=== PATIENT | male | born 1990 | race Caucasian/White ===

== ENCOUNTER 2020-12-13 11:10 | Outpatient (CLI) | payer OTHER ==
[2020-12-16 15:31] LABS: HEPATITIS C ANTIBODY NON-REACTIVE (NON-REACTIVE)
[2020-12-16 17:11] LABS: HIV AG/AB 4TH GEN NON-REACTIVE (NON-REACTIVE)
[2020-12-17 12:05] LABS: HSV 2 IGG TYPE SPECIFIC AB <0.90 index
== END 2020-12-13 11:11 | disposition home or self-care (01) ==
LOC: LAB.N 11:10
PROVIDERS: ATTEND Family Medicine
DX: Z11.3 Encounter for screening for infections with a predominantly sexual mode of transmission (principal)
CPT/HCPCS: 81599; 86592; 86695; 86696; 86803; 87389; 87491; 87591; 87661

== ENCOUNTER 2021-04-26 18:29 | Emergency (ER) | payer OTHER ==
--- NOTE | 2021-04-26 19:18 | ED Physician Documentation ---
PD HPI MAJOR TRAUMA - Stated complaint Stated Complaint: L SHOULDER INJ,L SIDE PX - Chief complaint Chief Complaint: Trauma Ch/Bk - History obtained from History obtained from: Patient - Additional information Additional information: Snowboarding forward fall yesterday onto ice yesterday. C/O sharp intermittent left upper anterior CP and increase with cough. Review of Systems Constitutional: reports: Reviewed and negative Throat: reports: Reviewed and negative Cardiac: reports: Chest pain / pressure Respiratory: reports: Reviewed and negative PD PAST MEDICAL HISTORY - Past Medical History Past Medical History: No - Present Medications Home Medications: Ambulatory Orders Medication Instructions Recorded Confirmed HYDROcod/ACETAM 5/325 [[place] 5/325] 1 - 2 tab PO Q6H PRN #10 tablet 04/26/21 - Allergies Allergies/Adverse Reactions: Allergies Allergy/AdvReac Type Severity Reaction Status Date / Time Sulfa (Sulfonamide Allergy Unknown Verified 04/26/21 18:53 Antibiotics) - Social History Does the pt smoke?: Yes Smoking Status: Current every day smoker (vaping) PD ED PE NORMAL - Vitals Vital signs reviewed: Yes - General General: Alert and oriented X 3, No acute distress - HEENT HEENT: PERRL, EOMI - Neck Neck: Supple, no meningeal sign, No bony TTP - Cardiac Cardiac: Other (Mild resting tachy; TTP Left upper chest wall, no deformity) - Respiratory Respiratory: No respiratory distress, Clear bilaterally - Abdomen Abdomen: Soft, Non tender - Extremities Extremities: No edema, No calf tenderness / cord - Neuro Neuro: Alert and oriented X 3, Normal speech - Psych Psych: Normal mood, Normal affect Results - Vitals Vitals: Vital Signs - 24 hr 04/26/21 04/26/21 18:46 18:52 Temperature 37.1 C 37.1 C Heart Rate 129 H 110 H Respiratory 16 16 Rate Blood Pressure 120/70 120/70 O2 Saturation 98 98 Oxygen O2 Source Room air - EKG (time done) 1851 Rate: Rate (enter#) (114) Rhythm: Sinus tachycardia [place]: RAD Intervals: Normal [place] QRS: Normal Ischemia: Normal ST segments - Labs Labs: Laboratory Tests 04/26/21 04/26/21 20:16 20:16 WBC 7.3 RBC 4.67 L Hgb 14.2 Hct 42.0 MCV 89.9 MCH 30.4 MCHC 33.8 RDW 12.6 Plt Count 219 MPV 9.3 Neut # (Auto) 4.7 Lymph # (Auto) 1.3 L [place] # (Auto) 1.3 H Eos # (Auto) 0.0 Baso # (Auto) 0.0 Absolute Nucleated RBC 0.00 Nucleated RBC % 0.0 Sodium 133 L Potassium 3.7 Chloride 96 L Carbon Dioxide 25 Anion Gap 12.0 BUN 11 Creatinine 1.1 Estimated GFR (MDRD) 78 L Glucose 119 H Calcium 8.7 Magnesium 2.0 PD MEDICAL DECISION MAKING - ED course ED course: 31-year-old gentleman with an anterior chest wall injury. He does have mild tachycardia and on exam has some ectopy with occasional PVCs. He had never known about this before and it seems relatively asymptomatic as his pain is not related to that so I suspect it is a incidental finding. We will give him some pain medication and check a rib x-ray as well as check electrolytes. Departure - Departure Disposition: 01 Home, Self Care Clinical Impression: Contusion of chest wall Qualifiers: Encounter type: initial encounter Laterality: left Qualified Code(s): S20.212A - Contusion of left front wall of thorax, initial encounter Condition: Good Record reviewed to determine appropriate education?: Yes Instructions: ED Contusion Chest Wall Prescriptions: HYDROcod/ACETAM 5/325 [[place] 5/325] 1 - 2 tab PO Q6H PRN #10 tablet PRN Reason: Pain Comments: You were seen today for chest wall contusion, the x-ray does not show any evident rib fracture or other abnormality. We noted you to have a mildly fast heart rate with some premature ventricular contractions. [place] [facility] your prescription to [facility] in [place]. I am prescribing a short course of narcotic pain medication for you. These are potentially dangerous and addictive medications that should be used carefully. These medications may constipate you. Take an bkft-jbn-[id number] stool softener (docusate) twice daily with plenty of water while taking these medications. If you go 24 hours without a bowel movement, take buij-liz-mdvovtq miralax, per package instructions. Do not drink or drive while taking these medications. If you received narcotic or sedating medications while in the emergency department, do not drive for 24 hours. Store this medication in a safe, secure place and out of reach of children. It is a violation of federal law to give or sell this medication to another person or to use in a manner other than prescribed. The ED will not refill narcotic prescriptions, including prescriptions lost or stolen. To dispose of unwanted medications: 1. [facility] at [address] in [place] has a medication drop box. They accept prescription medications (in pill form) Tuesday through Tuesday 9:00 a.m. to 5:00 p.m. 2. The [facility] accepts prescription medications (in pill form only) for disposal year round. Call for more informat ion. 3. Contact the [facility] for the next [facility] sponsored prescription drug collection event. , [phone], or [phone]; Note that many narcotic pain relievers also contain Tylenol/acetaminophen. Please ensure that your total dose of acetaminophen from all sources does not exceed 3 g (3000 mg) per day.
[2021-04-26] MEDS ORDERED: HYDROcod/ACET 5/325 Prepack 4 PO STA (19:21)
[2021-04-26] MEDS ORDERED: HYDROcod/ACETAM 5/325 MG TABLET PO STA (19:21)
--- NOTE | 2021-04-26 19:59 | XRAY Report ---
PROCEDURE: Ribs w/PA Chest LT INDICATIONS: chest pain TECHNIQUE: 2 views of the left ribs were acquired, along with a single view chest. COMPARISON: None. FINDINGS: Surgical changes and devices: None. Bones and chest wall: No fractures or dislocations. No suspicious bony lesions. Overlying soft tis sues appear unremarkable. Lungs and pleura: No pleural effusions or pneumothorax. Lungs appear clear. Mediastinum: Mediastinal contours appear normal. Heart size is normal. IMPRESSION: No obvious displaced left rib fracture is seen. No acute cardiopulmonary pathology. Reviewed by: Balaji Loera MD on 04/26/2021 7:58 PM PST Approved by: Balaji Loera MD on 04/26/2021 7:58 PM PST Station ID: [id number]
[2021-04-26 20:21] LABS: BASOPHILS % (AUTO) 0.4 %; HGB - HEMOGLOBIN 14.2 g/dL (14.0-18.0); LYMPHOCYTES # (AUTO) 1.3 10^3/uL (1.5-3.5); LYMPHOCYTES % (AUTO) 18.1 %; MEAN CORPUSCULAR HEMOGLOBIN 30.4 pg (27.0-31.0); MEAN CORPUSCULAR HGB CONC 33.8 g/dL (32.0-36.0); MEAN CORPUSCULAR VOLUME 89.9 fL (80.0-94.0); MEAN PLATELET VOLUME 9.3 fL (7.4-11.4); MONOCYTES # (AUTO) 1.3 10^3/uL (0.0-1.0); MONOCYTES % (AUTO) 17.4 %; NEUTROPHILS # (AUTO) 4.7 10^3/uL (1.5-6.6); NEUTROPHILS % (AUTO) 63.8 %; PLT - PLATELET COUNT 219 10^3/uL (130-450); RED BLOOD COUNT 4.67 10^6/uL (4.70-6.10); RED CELL DISTRIBUTION WIDTH 12.6 % (12.0-15.0); WHITE BLOOD COUNT 7.3 x10^3/uL (4.8-10.8)
[2021-04-26 20:29] LABS: CALCIUM 8.7 mg/dL (8.5-10.3); CREATININE 1.1 mg/dL (0.6-1.2); POTASSIUM 3.7 mmol/L (3.5-5.0)
[2021-04-26 20:43] VITALS: BP 120/80
== END 2021-04-26 20:42 | disposition home or self-care (01) ==
LOC: ED 18:29
DX: S20.212A Contusion of left front wall of thorax, initial encounter (principal); W00.9XXA Unspecified fall due to ice and snow, initial encounter; Y93.23 Activity, snow (alpine) (downhill) skiing, snowboarding, sledding, tobogganing and snow tubing; F17.290 Nicotine dependence, other tobacco product, uncomplicated; R00.0 Tachycardia, unspecified
CPT/HCPCS: 36415; 71101; 80048; 83735; 85025; 99283; 99284; A9270; 93005

== ENCOUNTER 2022-08-24 17:30 | Outpatient (CLI) | payer OTHER ==
[2022-08-25 22:55] LABS: CHLAMYDIA TRACHOMATIS DNA NEGATIVE (NEGATIVE); NEISSERIA GONORRHOEAE DNA NEGATIVE (NEGATIVE); TRICHOMONAS VAGINALIS DNA NEGATIVE (NEGATIVE)
[2022-08-26 06:10] LABS: HCV AB Non Reactive (Non Reactive); HIV SCREEN 4TH GENERATION Non Reactive (Non Reactive); RPR Non Reactive (Non Reactive)
[2022-08-26 07:10] LABS: HSV 2 IGG TYPE SPEC <0.91 index (0.00-0.90)
== END 2022-08-24 17:45 | disposition home or self-care (01) ==
LOC: LAB.N 17:30
PROVIDERS: ATTEND Nurse Practitioner
DX: Z11.3 Encounter for screening for infections with a predominantly sexual mode of transmission (principal)
CPT/HCPCS: 36415; 86592; 86695; 86696; 86803; 87389; 87491; 87591; 87661